=== PATIENT | female | born 1985 | race Caucasian/White ===

== ENCOUNTER 2017-05-29 05:30 | Inpatient (IN) | payer BC ==
[2017-05-29] MEDS ORDERED: Promethazine HCl 25 MG/ML VIAL IM PRN ×3 (06:26→19:27)
[2017-05-29] MEDS ORDERED: Lidocaine 1% (PF) 30 ML VIAL SC PRN (06:26)
[2017-05-29] MEDS ORDERED: Ibuprofen 800 MG TAB PO PRN (06:26)
[2017-05-29] MEDS ORDERED: Ondansetron HCl/PF 4 MG/2 ML Vial IVP PRN ×3 (06:26→19:27)
[2017-05-29] MEDS ORDERED: LR 500 ML/Oxytocin 10 units 500 ML IV SCH ×2 (06:26)
[2017-05-29] MEDS ORDERED: Acetaminophen/Codeine 30-300mg Tablet PO PRN ×4 (06:26→19:27)
[2017-05-29] MEDS: Lactated Ringer's 1,000 ML IV SCH ×2 (06:30→10:07)
[2017-05-29 06:52] VITALS: BMI 24.6
[2017-05-29 06:54] LABS: Hematocrit 36.1 % (36.0-47.0); Mean Platelet Volume 7.5 fL (7.4-10.4); Red Blood Cell (RBC) Count 3.92 mill/uL (4.20-5.40); White Blood Cell (WBC) Count 7.1 thou/uL (4.8-10.8)
[2017-05-29] MEDS ORDERED: Fentanyl 4 mcg/Marc 0.1% Cadd 100 ML ONE (09:15)
--- NOTE | 2017-05-29 10:05 | PDOC.LDHP ---
Labor and Delivery H&P Chief complaint: scheduled induction HPI: Pt is a 32yo @ 39 weeks, desires elective IOL. Current gestational age (weeks): 39 Due date: 06/05/18 Dating criteria: last menstrual period, first trimester ultrasound Grav: 3 Para: 1 OB History Details: x 1, IAB of XO x 1 Current complications: none Abnormal US findings: No Past Medical History: none Current medications: pre-keven vitamins Previous surgical history: dilation and curettage Allergies/Adverse Reactions: Allergies Allergy/AdvReac Type Severity Reaction Status Date / Time Penicillins Allergy Verified 04/16/16 17:15 Social history: none - Physical Exam Vital signs reviewed and normal: yes General: resting Heart: RRR Lungs: nonlabored breathing Abdomen: gravid Extremeties: no edema FHT: category 1 - Vaginal Exam cm dilated: 2 Effacement: 75% Station: -2 - OB Labs RH: positive Antibody Screen: negative HIV: negative RPR: negative HEPSAg: negative 1 hour GCT: negative GBS: negative Rubella: immune - Assessment L&D Assessment: elective induction at term - Plan Plan: admit to L&D, cervical ripening, labor augmentation if indicated, informed consent obtained, anesthesia consult for pain management -: A/P: 32yo @ 39 weeks here for desired elective IOL w favorable cervix. AROM on admit exam w clear fluid.
[2017-05-29] MEDS ORDERED: ePHEDrine/0.9% NaCl/PF SYRINGE 50 mg/10 ml SLOW IVP PRN (10:07)
[2017-05-29] MEDS ORDERED: diphenhydrAMINE 50 MG/ML VIAL IVP PRN (10:07)
[2017-05-29] MEDS ORDERED: Lactated Ringer's 500 ML IV PRN (10:07)
[2017-05-29] MEDS ORDERED: Acetaminophen 325 MG TAB PO PRN (10:07)
[2017-05-29] MEDS ORDERED: Naloxone HCl 0.4 mg/ml Vial IVP PRN ×2 (10:07)
[2017-05-29] MEDS ORDERED: Eucerin (Mineral Oil/Petrolatum,White) 30 gm Jar TOP PRN (10:07)
[2017-05-29] MEDS ORDERED: Communication Order-Pharmacy FS SCH (10:15)
[2017-05-29] MEDS ORDERED: Fentanyl 4mcg/Marcaine 0.1% Cassette 100 ML EPIDURAL SCH (10:15)
--- NOTE | 2017-05-29 14:11 | PDOC.LDPN ---
Labor & Delivery Progress Note - Subjective Subjective: comfortable - Objective Vital signs reviewed and normal: yes General: resting Dilation: 6 Effacement: 90% Station: 0 FHT: category 1 [place] contractions every: 2-3 AROM: clear fluid - Assessment (1) 39 weeks gestation of Code(s): Z3A.39 - 39 WEEKS GESTATION OF Current Visit: Yes Status : Acute (2) Normal Code(s): Z34.90 - ENCNTR FOR SUPRVSN OF NORMAL , UNSP, UNSP TRIMESTER Current Visit: No Status: Acute Plan: continue plan of care
--- NOTE | 2017-05-29 17:00 | PDOC.OPDEL ---
OB Operative/Delivery Note Delivery Dr/Surgeon: Williams Pre-Delivery Diagnosis: elective induction Procedure/Post Delivery Dx: spontaneous vaginal delivery Weeks gestation: 39 - Findings A Sex: female - Additional Findings/Plan Placenta delivered: spontaneous Repaired Obstetrical Laceration: vaginal (left sidewall) Estimated blood loss: 300ml Post delivery plan: routine recovery
[2017-05-29] MEDS: LR / Pitocin 40 units/1000 ml 1,000 ML IV PRN ×2 (18:24→18:25)
[2017-05-29] MEDS ORDERED: LR / Pitocin 40 units/1000 ml 1,000 ML IV SCH (19:27)
[2017-05-29] MEDS ORDERED: Lanolin Ointment 7 GM TUBE TOP PRN (19:27)
[2017-05-29] MEDS ORDERED: Preparation H Ointment 28 GM TUBE PR PRN (19:27)
[2017-05-29] MEDS ORDERED: Bisacodyl 10 MG SUPP PR PRN (19:27)
[2017-05-29] MEDS ORDERED: Benzocaine/Menthol 20-0.5% 60 ML CAN TOP PRN (19:27)
[2017-05-29] MEDS ORDERED: Milk Of Magnesia 30 ML UDCUP PO PRN (19:27)
[2017-05-29] MEDS ORDERED: diphenhydrAMINE 25 MG CAP PO PRN (19:27)
[2017-05-29] MEDS ORDERED: Ferrous Sulfate 325 MG TAB PO SCH (20:00)
[2017-05-29] MEDS ORDERED: Adacel (T-DAP) 0.5 ML VIAL IM ONE (20:00)
[2017-05-29] MEDS ORDERED: Lidocaine 2% PF 5 ML VIAL ONE (20:29)
[2017-05-29] MEDS ORDERED: ePHEDrine/0.9% NaCl/PF SYRINGE 50 mg/10 ml ONE (20:29)
[2017-05-29] MEDS: Docusate (Surfak) 240 MG CAP PO SCH (21:48)
[2017-05-29] MEDS: Ibuprofen 800 MG TAB PO SCH (21:48)
[2017-05-29] MEDS ORDERED: Ibuprofen 800 MG TAB PO SCH (23:30)
[2017-05-30 05:28] LABS: Hematocrit 33.4 % (36.0-47.0); Mean Platelet Volume 7.6 fL (7.4-10.4); Red Blood Cell (RBC) Count 3.58 mill/uL (4.20-5.40); White Blood Cell (WBC) Count 8.4 thou/uL (4.8-10.8)
[2017-05-30] MEDS: Ibuprofen 800 MG TAB PO SCH ×2 (05:58→14:57)
[2017-05-30] MEDS: Docusate (Surfak) 240 MG CAP PO SCH (08:58)
[2017-05-30] MEDS: Ferrous Sulfate 325 MG TAB PO SCH ×2 (08:58→17:01)
[2017-05-30] MEDS ORDERED: Prenatal Vitamin 1 TAB PO SCH (09:00)
--- NOTE | 2017-05-30 09:27 | PDOC.PP ---
Post Progress Note Post Day #: 1 Subjective: Doing well, only concerns are about breast feeding, would like LC PO intake tolerated: yes Flatus: yes Ambulation: yes Vital Signs (12 hours) Temp Pulse Resp BP 05/30/17 06:00 97.8 F 67 18 97/55 L 05/30/17 00:00 97.5 F L 61 18 99/63 Weight Weight 162 lb - Physical Examination General: NAD Respiratory: non-labored breathing Abdominal: no distention Fundus firm & at: below umb Extremities: negative homans (B) Skin: no rash Neurological: no gross focal deficits Psychiatric: A&Ox3, normal affect Result Diagrams: 05/30/17 04:43 Additional Labs: Post Labs Blood Type A POSITIVE 05/29/17 06:28 Hep Bs Antigen Non-Reactive S/CO (NonReactive) 05/29/17 06:28 (1) 39 weeks gestation of Code(s): Z3A.39 - 39 WEEKS GESTATION OF Status: Acute (2) Normal Code(s): Z34.90 - ENCNTR FOR SUPRVSN OF NORMAL , UNSP, UNSP TRIMESTER Status: Acute - Assessment/Plan PPD#1 doing well, LC today. Poss DC home today if baby feeding well and dc'd by nursery.
[2017-05-30 10:45] VITALS: TEMP 98.1
[2017-05-30 17:38] VITALS: BP 106/66
== END 2017-05-30 17:58 | disposition home or self-care (01) | DRG 775 ==
LOC: L&D 06:00 → 3SW 19:23
PROVIDERS: ADMIT Obstetrics & Gynecology; ATTEND Obstetrics & Gynecology
PROC: 10E0XZZ Delivery of Products of Conception, External Approach (ICD-10-PCS; principal; 2017-05-29)
PROC: 10907ZC Drainage of Amniotic Fluid, Therapeutic from Products of Conception, Via Natural or Artificial Opening (ICD-10-PCS; 2017-05-29)
PROC: 3E0P3VZ Introduction of Hormone into Female Reproductive, Percutaneous Approach (ICD-10-PCS; 2017-05-29)
PROC: 3E0P7VZ Introduction of Hormone into Female Reproductive, Via Natural or Artificial Opening (ICD-10-PCS; 2017-05-29)
PROC: 0HQ9XZZ Repair Perineum Skin, External Approach (ICD-10-PCS; 2017-05-29)
DX: O70.0 First degree perineal laceration during delivery (principal); Z37.0 Single live birth; Z3A.39 39 weeks gestation of pregnancy
CPT/HCPCS: 36415; 51702; 85027; 86850; 86900; 86901; 87340; J2001; J2405; J7120